=== PATIENT | female | born 1975 | race African-American/Black ===

== ENCOUNTER 2016-11-23 08:14 | Observation (INO) | payer OTHER ==
[2016-11-23] VITALS (7 sets, daily range): BP systolic 110–138; BP diastolic 72–83
[~2016-11-23] VITALS: Ht 170.2 cm; Wt 70.8 kg
[~2016-11-23 08:14] MED LIST: BUPIVACAINE-EPI 0.25%-1:200000 MPF 30 ML VIAL. ONE; ESTROGENS, CONJ VAGINAL CREAM 30GM TUBE. ONE; LIDOCAINE 1%/EPI 1:100,000 20 ML VIAL. ONE; METHYLENE BLUE 1% 10 ML VIAL. ONE; SURGICEL HEMOSTAT 4X8 EACH. ONE
[2016-11-23 08:53] LABS: BASO % 1 % (0-3); EOS % 5 % (0-3); HEMATOCRIT 37.9 % (36.0-47.0); HEMOGLOBIN 12.9 g/dL (12.0-15.5); LYMPH # 2.7 x10^3/uL (1.0-4.8); LYMPH % 49 % (24-48); MEAN CORPUSCULAR HEMOGLOBIN 29 pg (25-35); MEAN CORPUSCULAR HGB CONC 34 g/dL (31-37); MEAN CORPUSCULAR VOLUME 85 fL (79-100); MONO % 6 % (0-9); NEUT % 39 % (31-73); PLATELET COUNT 219 x10^3/uL (140-400); RED BLOOD COUNT 4.46 x10^6/uL (3.50-5.40); RED CELL DISTRIBUTION WIDTH 16.7 % (11.5-14.5); WHITE BLOOD COUNT 5.6 x10^3/uL (4.0-11.0)
[2016-11-23] MEDS ORDERED: LEVO1TAB33 PO (08:55)
[2016-11-23] MEDS ORDERED: LORA0.5T PO (08:56)
[2016-11-23] MEDS ORDERED: LISI1TAB3 PO (08:57)
[2016-11-23] MEDS ORDERED: OLAN5TAB9 PO (08:58)
[2016-11-23] MEDS ORDERED: FEXO180T81 PO (08:58)
[2016-11-23 08:59] LABS: NEG OBC UR NEG; POS OBC UR POS
[2016-11-23] MEDS ORDERED: DIVA500T9 PO (08:59)
[2016-11-23] MEDS ORDERED: IV RINGERS,LACTATED 1000ML 1,000 ML IV SCH ×2 (09:00→09:11)
[2016-11-23] MEDS ORDERED: DEXAMETHASONE SOD PHOS 20 MG/5 ML VIAL. ONE (09:11)
[2016-11-23] MEDS ORDERED: SEVOFLURANE 61 TO 120 MINUTES. IH ONE (09:11)
[2016-11-23] MEDS ORDERED: ROCURONIUM 100 MG/10 ML VIAL. ONE (09:11)
[2016-11-23] MEDS ORDERED: PROPOFOL 20 ML IV ONE (09:11)
[2016-11-23] MEDS ORDERED: LIDOCAINE 2% PF Vial for OR 5 ML VIAL. ONE (09:11)
[2016-11-23] MEDS ORDERED: MIDAZOLAM HCL/PF 2 MG/2 ML VIAL. ONE ×2 (09:11→10:42)
[2016-11-23] MEDS ORDERED: SEVOFLURANE > 120 MINUTES. IH ONE (09:11)
[2016-11-23] MEDS ORDERED: ONDANSETRON PF 4 MG/2 ML VIAL. ONE (09:11)
[2016-11-23] MEDS ORDERED: fentaNYL PF VIAL 100 MCG/2 ML VIAL ONE (09:11)
[2016-11-23] MEDS ORDERED: HYDROmorphone 2 MG/ML VIAL IV PRN (09:15)
[2016-11-23] MEDS ORDERED: PROCHLORPERAZINE 10 MG/2 ML VIAL. IV PRN ×2 (09:15→13:00)
[2016-11-23] MEDS ORDERED: ONDANSETRON PF 4 MG/2 ML VIAL. IV PRN ×2 (09:15→13:00)
[2016-11-23] MEDS ORDERED: MORPHINE SULFATE 4 MG/ML DISP.SYRIN. IV PRN (09:15)
[2016-11-23] MEDS ORDERED: LIDOCAINE 1% PF 2 ML VIAL. ID PRN (09:15)
[2016-11-23] MEDS ORDERED: fentaNYL PF VIAL 100 MCG/2 ML VIAL IV PRN (09:15)
[2016-11-23] MEDS ORDERED: GLYCOPYRROLATE 1 MG/5 ML VIAL. ONE (09:16)
--- NOTE | 2016-11-23 12:51 | PDOC ---
BRIEF OPERATIVE NOTE Pre-Op Diagnosis KINGA 3 Post-Op Diagnosis SAme + BERTIN Cyst Procedure Performed LAVH & LSO Surgeon Dr. Ganga Gutierrez Anesthesia Type: General Blood Loss 75 ml Specimens Obtained uterus, cervix, Kwan. fallopian tubes, BERTIN Findings enlarged uterus, nml fallopian tubes kwan., BERTIN cyst 4 cm size; nml ROV Complications none PRUDENCIO BERNARD Jr, MD Nov 23, 2016 12:51
[2016-11-23] MEDS ORDERED: DEXTROSE 50% 25 GM / 50ML DISP.SYRIN. IV PRN (13:00)
[2016-11-23] MEDS ORDERED: SIMETHICONE 80 MG TAB.CHEW PO PRN (13:00)
[2016-11-23] MEDS ORDERED: diphenhydrAMINE 50 MG/ML VIAL IV PRN (13:00)
[2016-11-23] MEDS ORDERED: KETOROLAC 30 MG/ML INJ. IV PRN (13:00)
[2016-11-23] MEDS ORDERED: ZOLPIDEM 5 MG TABLET. PO PRN (13:00)
[2016-11-23] MEDS ORDERED: 0.9 % SODIUM CHLORIDE 10 ML DISP.SYRIN. IV PRN (13:00)
[2016-11-23] MEDS: fentaNYL PF VIAL 100 MCG/2 ML VIAL IV PRN ×2 (13:00→13:52)
[2016-11-23] MEDS ORDERED: CALCIUM CARBONATE 500 MG TAB.CHEW PO PRN (13:00)
[2016-11-23] MEDS ORDERED: diphenhydrAMINE HCL 25 MG CAPSULE PO PRN (13:00)
[2016-11-23] MEDS ORDERED: oxyCODONE/APAP 5/325 1 TAB TABLET PO PRN (13:00)
--- NOTE | 2016-11-23 15:06 | OP ---
DATE OF SURGERY: PREOPERATIVE DIAGNOSIS: Cervical intraepithelial neoplasia 3. POSTOPERATIVE DIAGNOSES: Cervical intraepithelial neoplasia 3 plus left ovarian cyst. PROCEDURE: LAVH/LSO. SURGEON: Prudencio Schuler MD OPTIMIZATION ANALYST: Brenda. ANESTHESIA: GETA. ESTIMATED BLOOD LOSS: 75 mL. COMPLICATIONS: None. FINDINGS: Enlarged uterus, normal fallopian tubes bilaterally. Left ovarian cyst of 4 cm size. Normal right ovary. SUMMARY: A 41-year-old female who has noninvasive cervical cancer required hysterectomy in the form of LAVH. The patient was counseled on risks, benefits and expectations and voiced a clear understanding to proceed. DESCRIPTION OF PROCEDURE: The patient was taken to the surgery suite and placed in dorsal lithotomy position. She was prepped with Betadine solution for vaginal prep and ChloraPrep for abdominal prep. After adequate anesthesia, a weighted speculum was placed vaginally. Anterior lip of the cervix grasped with the single tooth tenaculum. The [employer] uterine manipulator was then placed. The weighted speculum was removed. Attention was now placed on abdomen. Small transverse skin incision was made just below the umbilicus. The Veress needle was then placed through the infraumbilical incision site. The abdomen was allowed to insufflate up to 1-1/2 liters CO2 gas. The Veress needle was then removed. A 5-mm trocar was placed. The scope was positioned. The uterus appeared enlarged. Fallopian tubes appeared normal bilaterally. Right ovary appeared normal. The left ovary demonstrated 4-cm cyst that was concerning due to the patient's history of noninvasive cervical cancer. The patient's family was notified of the need to remove the left ovary as well. Two incisions were made in the left lower quadrant with a scalpel, in which 5-mm trocars were placed. With aid of graspers and EnSeal, the left round ligament was coagulated and dissected. The left infundibulopelvic ligament was coagulated and dissected. Left broad ligament was coagulated and dissected down to and including the left uterine artery. The right round ligament was then coagulated and dissected. The right fallopian tube was dissected away from the right ovary using the EnSeal device. The utero-ovarian pedicle was coagulated and dissected. The right broad ligament was coagulated and dissected Including the right uterine artery. Bladder flap was created using blunt dissection along with EnSeal device. Suction irrigation was utilized to verify good hemostasis. We then proceeded vaginally. Weighted speculum and curved Moira placed vaginally. The single tooth tenaculum was removed as well as the [employer] uterine manipulator. Claudette clamps were placed on the anterior and posterior lip of the cervix. Cervix was injected with 0.25% Marcaine with epinephrine in circumferential manner. Bovie cautery was utilized to circumscribe the cervix. The vaginal mucosa was dissected away from the lower uterine segment using a moist Ray-Abe. The parametrial tissue was clamped bilaterally with curved Didi clamps, cut and suture tied with 2-0 Vicryl suture. Posterior cul-de-sac was entered sharply using curved Bronson scissors. The anterior cul-de-sac was entered bluntly. The uterosacral ligaments and cardinal ligaments were clamped with curved Didi clamps, cut, and suture ligated. The cervix, uterus, bilateral fallopian tubes and left ovary were removed in their entirety. The vaginal cuff was visualized and was hemostatic. A modified Diez's culdoplasty was performed incorporating the uterosacral ligaments bilaterally. The remainder of the vaginal cuff was reapproximated using 2-0 Vicryl suture in a [id number]-hc-[id number] manner. Moist vaginal packing was placed. Attention was again placed on the abdomen. The abdomen was allowed to insufflate up to 1-1/2 liters of CO2 gas. The posterior cul-de-sac was visualized. Suction irrigation was utilized to verify good hemostasis. A small amount of normal saline was left in the posterior cul-de-sac. The trocars were removed under direct visualization. The abdomen was allowed to deflate as much as possible along with mechanical manipulation. The 3 skin incisions were reapproximated using 4-0 Vicryl suture in subcuticular manner. 0.25% Marcaine with epinephrine was injected at each incision site. The patient tolerated the procedure well and was taken to recovery room in stable condition. Sponge and needle count correct times 3. PRUDENCIO SCHULER MD DR: JAKUB/blair JOB#: [id number] / [id number]
[2016-11-23] MEDS: GABAPENTIN 300 MG CAPSULE. PO SCH ×2 (16:04→21:59)
[2016-11-24 01:46] VITALS: BP 109/67
[2016-11-24 04:00] LABS: BASO # 0.1 x10^3/uL (0.0-0.2); BASO % 1 % (0-3); EOS % 0 % (0-3); HEMATOCRIT 35.7 % (36.0-47.0); HEMOGLOBIN 11.6 g/dL (12.0-15.5); LYMPH # 2.8 x10^3/uL (1.0-4.8); LYMPH % 31 % (24-48); MEAN CORPUSCULAR HEMOGLOBIN 28 pg (25-35); MEAN CORPUSCULAR HGB CONC 33 g/dL (31-37); MEAN CORPUSCULAR VOLUME 86 fL (79-100); MONO % 6 % (0-9); NEUT % 62 % (31-73); PLATELET COUNT 201 x10^3/uL (140-400); RED BLOOD COUNT 4.14 x10^6/uL (3.50-5.40); RED CELL DISTRIBUTION WIDTH 16.7 % (11.5-14.5); WHITE BLOOD COUNT 8.9 x10^3/uL (4.0-11.0)
[2016-11-24 06:20] VITALS: BP 115/75
[2016-11-24] MEDS: GABAPENTIN 300 MG CAPSULE. PO SCH (06:20)
--- NOTE | 2016-11-24 08:51 | PDOC ---
SURGICAL PROGRESS NOTE Subjective Pt. feeling well. No complaints. Pain controlled. Pt. ambulating, voiding and tolerating regular diet with out difficulty. Vital Signs Vital Signs Date Time Temp Pulse Resp B/P (MAP) Pulse Ox O2 Delivery O2 Flow Rate FiO2 11/24/16 06:20 98.2 68 20 115/75 (88) 98 Room Air 98.2 11/23/16 13:10 10 PATIENT HAS A DE OLIVEIRA: No General: Alert, Oriented X3, Cooperative HEENT: Atraumatic Lungs: Clear to auscultation Heart: Regular rate Abdomen: Normal bowel sounds, Soft, No tenderness, No masses Psych/Mental Status: Mental status NL Labs Laboratory Tests Test 11/23/16 08:15 11/23/16 08:35 11/24/16 03:30 Urine Test Negative (NEG) White Blood Count 5.6 x10^3/uL (4.0-11.0) 8.9 x10^3/uL (4.0-11.0) Red Blood Count 4.46 x10^6/uL (3.50-5.40) 4.14 x10^6/uL (3.50-5.40) Hemoglobin 12.9 g/dL (12.0-15.5) 11.6 g/dL (12.0-15.5) Hematocrit 37.9 % (36.0-47.0) 35.7 % (36.0-47.0) Mean Corpuscular Volume 85 fL (79-100) 86 fL (79-100) Mean Corpuscular Hemoglobin 29 pg (25-35) 28 pg (25-35) Mean Corpuscular Hemoglobin Concent 34 g/dL (31-37) 33 g/dL (31-37) Red Cell Distribution Width 16.7 % (11.5-14.5) 16.7 % (11.5-14.5) Platelet Count 219 x10^3/uL (140-400) 201 x10^3/uL (140-400) Neutrophils (%) (Auto) 39 % (31-73) 62 % (31-73) Lymphocytes (%) (Auto) 49 % (24-48) 31 % (24-48) Monocytes (%) (Auto) 6 % (0-9) 6 % (0-9) Eosinophils (%) (Auto) 5 % (0-3) 0 % (0-3) Basophils (%) (Auto) 1 % (0-3) 1 % (0-3) Neutrophils # (Auto) 2.2 x10^3uL (1.8-7.7) 5.5 x10^3uL (1.8-7.7) Lymphocytes # (Auto) 2.7 x10^3/uL (1.0-4.8) 2.8 x10^3/uL (1.0-4.8) Monocytes # (Auto) 0.3 x10^3/uL (0.0-1.1) 0.6 x10^3/uL (0.0-1.1) Eosinophils # (Auto) 0.3 x10^3/uL (0.0-0.7) 0.0 x10^3/uL (0.0-0.7) Basophils # (Auto) 0.0 x10^3/uL (0.0-0.2) 0.1 x10^3/uL (0.0-0.2) Laboratory Tests Test 11/24/16 03:30 White Blood Count 8.9 x10^3/uL (4.0-11.0) Red Blood Count 4.14 x10^6/uL (3.50-5.40) Hemoglobin 11.6 g/dL (12.0-15.5) Hematocrit 35.7 % (36.0-47.0) Mean Corpuscular Volume 86 fL (79-100) Mean Corpuscular Hemoglobin 28 pg (25-35) Mean Corpuscular Hemoglobin Concent 33 g/dL (31-37) Red Cell Distribution Width 16.7 % (11.5-14.5) Platelet Count 201 x10^3/uL (140-400) Neutrophils (%) (Auto) 62 % (31-73) Lymphocytes (%) (Auto) 31 % (24-48) Monocytes (%) (Auto) 6 % (0-9) Eosinophils (%) (Auto) 0 % (0-3) Basophils (%) (Auto) 1 % (0-3) Neutrophils # (Auto) 5.5 x10^3uL (1.8-7.7) Lymphocytes # (Auto) 2.8 x10^3/uL (1.0-4.8) Monocytes # (Auto) 0.6 x10^3/uL (0.0-1.1) Eosinophils # (Auto) 0.0 x10^3/uL (0.0-0.7) Basophils # (Auto) 0.1 x10^3/uL (0.0-0.2) Assessment/Plan A: POD#1 s/p LAVH & LSO P: D/c home. Problems: PRUDENCIO BERNARD Jr, MD Nov 24, 2016 08:51
--- NOTE | 2016-11-24 08:52 | DISCH ---
DISCHARGE INSTRUCTIONS Condition on Discharge Condition on Discharge: Stable Activity After Discharge Activity Instructions for Disc: Activity as tolerated Lifting Instructions after Dis: No heavy lifting Driving Instructions after Dis: No driving for 2 weeks Diet after Discharge Diet after Discharge: Regular Contacting the DRHemal after DC Call your doctor for: Concerns you may have Follow-Up Follow up with: Dr. Schuler in 2 weeks. PRUDENCIO SCHULER Jr, MD Nov 24, 2016 08:52
[2016-11-24] MEDS ORDERED: OXYC-323 PO (08:54)
[2016-11-24] MEDS ORDERED: DOCU-109 PO (08:54)
[2016-11-24] MEDS ORDERED: IBUP-1060 PO (08:54)
[2016-11-24] MEDS ORDERED: IBUPROFEN 800 MG TABLET. PO PRN (09:15)
[2016-11-24 11:30] VITALS: BP 142/91
--- NOTE | 2016-11-27 08:52 | PATHOLOGY ---
PATHOLOGY REPORT * * * * * * * * FINAL DIAGNOSIS: Uterus, left ovary, and bilateral fallopian tubes, removal: - Cervix with focal residual severe dysplasia (KINGA-III). - No evidence of severe dysplasia at vaginal cuff margin of excision. - Proliferative phase endometrium with focal endometrial polyp, 1.7 cm. - Myometrium with adenomyosis. - Serosal surface with no pathologic diagnosis. - Right and left fallopian tubes with no pathologic diagnosis. - Left ovary with simple cysts and hemorrhagic corpus luteum. (SKM:marilynn; 11/24/2016) REPORT ELECTRONICALLY SIGNED BY: Roney Shabazz M.D. DATE/TIME: 11/27/2016 08:51 * * * * * * * * GROSS PATHOLOGY: The specimen is received in formalin labeled "Sofi Steven, uterus, cervix, bilateral tubes, and left ovary". Received is a 154 g uterus measuring 10.1 cm cervix the fundus, 6.8 cm cornu to cornu, and 5.1 cm anterior posterior with attached cervix and bilateral fallopian tube. The uterine serosa is pink-nova, smooth, and glistening. The slitlike 1.2 cm cervical os is surrounded by pink-nova and glistening ectocervical mucosa. The uterus is oriented using the peritoneal reflection. The cervix is removed and radially sectioned. The uterus is bivalved to reveal a pink-nova herringbone endocervical canal measuring 2.0 cm in length. The endometrial cavity is triangular measuring 5.0 cm in length by 4.0 cm in width. The endometrium is pale white-nova in appearance and measures 0.1 cm in thickness. Serial sectioning reveals a pink-nova and trabeculated myometrium measuring 2.4 cm in thickness. There are multiple nodules in both the anterior and posterior aspect measuring up to 5.0 cm in greatest dimension. The cut surfaces are pale white-nova and whorled. No areas of hemorrhage are identified. A polyp is identified in the anterior endometrial cavity measuring 1.7 x 1.7 x 0.7 cm. The right inked adnexa consists of a fimbriated fallopian tube measuring 5.1 cm in length by up to 1.0 cm in diameter. Sectioning through the fallopian tube reveals a purple-nova and central lumen and the fallopian tube appears grossly unremarkable. The left adnexa consists of a fimbriated fallopian tube measuring 4.5 cm in length by up to 0.8 cm in diameter attached to a cystic, purple-nova and nodular 3.9 x 2.5 x 1.8 cm ovary. Sectioning through the fallopian tube reveals a purple-nova and central lumen and the fallopian tube appears grossly unremarkable. Sectioning through the ovary reveals multiple cystic cavities containing clear fluid as well as hemorrhagic material measuring up to 2.1 cm in greatest dimension. There is less than 50% normal ovarian tissue. The specimen is submitted representatively as follows: A1-A2: 12 to 3:00 cervix A3-A5: 3 to 6:00 cervix A6-A7: 6 to 9:00 cervix A8-A10: 9-12:00 cervix A11: Anterior endomyometrium A12: Posterior endomyometrium A13: Nodule A14: Polyp A15: Right fallopian tube A16-17: Left fallopian tube and ovary (SDY; 11/23/2016) INITIAL CPT CODE(S): A; 63282 Professional services performed [place] [facility] [place] [address] Technical services performed by [facility] at [address] [place] [address] [address] [address]. SPECIMEN(S) RECEIVED: A.Uterus, cervix, bilateral fallopian tubes and left ovary CLINICAL HISTORY: KINGA III PATIENT: PAULETTE MIKEONOFRE /AGE: 911/16/1975 (Age: 41) PATIENT #: [id number] ALT CASE #: SPECIMEN COLLECTION DATE: 11/23/2016 SPECIMEN RECEIVED DATE: 11/23/2016 [facility] [place] [address] - PHONE: [phone] * * * END OF REPORT * * *
== END 2016-11-24 11:30 | disposition home or self-care (01) ==
LOC: SURG 08:14 → 3 NORTH 13:15
PROVIDERS: ADMIT Obstetrics & Gynecology; ATTEND Obstetrics & Gynecology
DX: D06.9 Carcinoma in situ of cervix, unspecified (principal); C53.9 Malignant neoplasm of cervix uteri, unspecified; N83.202 Unspecified ovarian cyst, left side; N85.2 Hypertrophy of uterus
CPT/HCPCS: 36415; 58552; 81025; 85025; 86850; 86900; 86901; 88309; 96374; A4215; G0378; G0379; J0690; J0780; J1100; J1885; J2250; J2405; J2704; J3010; J3490; J7030; J7120; Q9968; J2001